=== PATIENT | female | born 1945 | race Caucasian/White ===

== ENCOUNTER 2016-11-15 15:47 | Inpatient (IN) | payer BC ==
--- NOTE | ~2016-11-15 | IDS ---
Interim Discharge Summary [place] [address] [facility] [place]. [address] NAME: ALFIE KEBEDE : 45 STATUS : ADM IN PAT#: [id number] AGE: 71 ADM/REG DATE : 11/15/16 MR#: [id number] REPORT SERV DATE: 11/25/16 DICTATED BY: JASVIR MCFARLANE DATE: 11/24/16 REPORT STATUS : Draft TRANSCRIBED BY: MODL DATE: 11/24/16 ADMISSION DATE: 11/15/2016 DISCHARGE DATE: DATE OF INTERIM SUMMARY: 11/24/2016. CURRENT DIAGNOSES: 1. Stage IV adenocarcinoma of the uterus. 2. Brain metastasis with edema and hemorrhage. 3. Likely simple partial seizure secondary to brain metastasis with left upper extremity tremor. 4. Uncontrolled hypertension, improved. 5. Uncontrolled diabetes, improved. 6. Proteus urinary tract infection, on treatment. 7. Chronic atrial fibrillation. 8. Eliquis anticoagulation, discontinued at this time. 9. Urinary retention. 10.Azotemia associated with treatment. 11.Depression. 12.Acute on chronic constipation. 13.Spinal stenosis by MRI imaging. 14.Coronary disease. 15.Sleep apnea. 16.Hyperlipidemia. 17.History of lymphedema. 18.Nonalcoholic fatty liver disease. 19.History of colon polyps. 20.Asymptomatic cholelithiasis. OPERATIONS AND PROCEDURES: None. PRESENT ILLNESS: This is a 71-year-old white female who was triaged in the emergency room on 11/15/2016 at 1547 hours complaining of generalized weakness for 3 weeks. After evaluation in the emergency room, she was referred to the Hospitalist Service for admission. She was seen by Dr. Maciel Valera and admitted as described on admission history and physical examination. Additional history included the following symptoms: Dizziness, lightheadedness, falls, progression of chronic back pain, poor bladder control with occasional incontinence, weight loss, and progressive weakness. ADDITIONAL HISTORY: Per Dr. Vlaera. PHYSICAL EXAMINATION: Per Dr. Valera. Interim Discharge Summary [address] [place]. [address] NAME: ALFIE KEBEDE : 45 STATUS : ADM IN PAT#: [id number] AGE: 71 ADM/REG DATE : 11/15/16 MR#: [id number] REPORT SERV DATE: 11/25/16 DICTATED BY: JASVIR MCFARLANE DATE: 11/24/16 REPORT STATUS : Draft TRANSCRIBED BY: LARRY DATE: 11/24/16 DICTATION ENDS HERE DD/LARRY Jasvir Mcfarlane M.D. / [id number] CC: Juanita Villalta ERIN
--- NOTE | ~2016-11-15 | CONSULT ---
Radiation Oncology Consult [address] [place]. [address] NAME: ALFIE KEBEDE : 45 STATUS : ADM IN PAT#: [id number] AGE: 71 ADM/REG DATE : 11/15/16 MR#: [id number] REPORT SERV DATE: 11/19/16 DICTATED BY: ESSIE FONSECA DATE: 11/19/16 REPORT STATUS : Draft TRANSCRIBED BY: LARRY DATE: 11/19/16 RADIATION ONCOLOGY CONSULTATION DIAGNOSIS: Stage IV endometrial cancer with brain metastases. HISTORY OF PRESENT ILLNESS: This is a very pleasant 71-year-old female with past medical history significant for endometrial adenocarcinoma with known stage IV disease. She has been maintained on Megace with relatively stable disease. The patient presented with generalized weakness and falls. The patient reports she also has significant back pain and inability to get up, prompted her to call an ambulance. CT head was performed, which was concerning for new brain metastases. I am called consulted to discuss palliative radiation. At today's visit, the patient is lying comfortably in hospital bed. She continues to note generalized weakness. She denies any focal neurologic symptoms. She denies any headaches and nausea or vomiting. She continues to have back pain. She reports she has had approximately a 10-pound weight loss. She reports a good appetite. Denies fevers, chills, or night sweats. PAST MEDICAL HISTORY: 1. Stage IV endometrial adenocarcinoma. 2. Atrial fibrillation. 3. PE. 4. CAD. 5. Obstructive sleep apnea. 6. Diabetes. 7. Hypertension. 8. Hyperlipidemia. 9. Cholelithiasis. 10.Chronic kidney disease. PAST SURGICAL HISTORY: 1. Hysterectomy with bilateral salpingo-oophorectomy. 2. Hernia repair. REVIEW OF SYSTEMS: A complete and extended review of system was performed with pertinent positives are noted in the HPI. MEDICATIONS: Reconciliation has been reviewed and discussed. Please refer to EMR. ALLERGIES: CIPRO. SOCIAL HISTORY: The patient is retired. She denies tobacco abuse. She drinks alcohol occasionally and denies illicit drug use. Radiation Oncology Consult [address] [place]. [address] NAME: ALFIE KEBEDE : 45 STATUS : ADM IN PAT#: [id number] AGE: 71 ADM/REG DATE : 11/15/16 MR#: [id number] REPORT SERV DATE: 11/19/16 DICTATED BY: ESSIE FONSECA DATE: 11/19/16 REPORT STATUS : Draft TRANSCRIBED BY: LARRY DATE: 11/19/16 FAMILY HISTORY: The patient's father had lung cancer. Her mother of a stroke. PHYSICAL EXAMINATION: ECOG performance status of 2. Pain score 8/10. VITAL SIGNS: Afebrile, respiration rate 16, O2 saturation 96% on room air. GENERAL: Well-developed obese female, in no acute distress. She is lying comfortably in hospital bed. HEENT: Normocephalic. Extraocular movements intact. Moist mucous membranes. LYMPHATICS: No supraclavicular or cervical lymphadenopathy. CARDIOVASCULAR: Normal rate and rhythm. No murmurs. RESPIRATORY: Decreased breath sounds bilaterally. No wheezing. GI: Soft, nontender, nondistended. EXTREMITIES: No edema. Normal range of motion. NEURO: Cranial nerves intact. Strength and sensation intact in all extremities. Gait not tested. The patient lying comfortably in hospital bed. PSYCH: Verbalized understanding of our discussion. Depressed affect. Verbalizes understanding of our discussion. IMAGING: CT head is positive for hemorrhagic metastasis in the right and left brain. There is no ventricular shift. ASSESSMENT AND PLAN: A 71-year-old female with stage IV endometrial adenocarcinoma with new brain metastases. I discussed her imaging findings, which is concerning for intracranial disease. We discussed palliative radiation with both whole brain radiation as well as stereotactic radiation. She will need an MRI brain with and without gadolinium to further evaluate these lesions. If she has limited number of lesions, I believe she would benefit from a course of Decadron for approximately one week to decreased swelling. I will plan stereotactic radiation next week when she has been discharged. I will follow up after the brain MRI. I appreciate the opportunity to take part in this patient's care. JTVenancio/LARRY Essie Fonseca MD / [id number] CC: Juanita Villalta,Heavenly Gutierrez MD Radiation Oncology Consult [place] [address] [address] [place] [address] NAME: ALFIE KEBEDE : 45 STATUS : ADM IN PAT#: [id number] AGE: 71 ADM/REG DATE : 11/15/16 MR#: [id number] REPORT SERV DATE: 11/19/16 DICTATED BY: ESSIE FONSECA DATE: 11/19/16 REPORT STATUS : Draft TRANSCRIBED BY: MODL DATE: 11/19/16 Veto Mccann M.D.
--- NOTE | ~2016-11-15 | CN ---
Consultation Report [facility] [address] [place]. [address] NAME: ALFIE SCHULTZ : 45 STATUS : ADM Mattie PAT#: [id number] AGE: 71 ADM/REG DATE : 11/15/16 MR#: [id number] REPORT SERV DATE: 11/16/16 DICTATED BY: ALEX GUTIERREZ DATE: 11/16/16 REPORT STATUS : Draft TRANSCRIBED BY: MODL DATE: 11/16/16 CONSULTATION NOTE DATE OF CONSULTATION: 11/16/2016 REASON FOR CONSULTATION: Metastatic endometrial cancer. HISTORY OF PRESENT ILLNESS: Ms. Schultz is a delightful 71-year-old female with a known metastatic endometrial carcinoma to the chest. She is currently receiving megestrol acetate, and her disease has been stable recently. She has had flu-like symptoms with illnesses "cold." She got progressively weak since that time. She had a fall several weeks ago. She states that she has had multiple imaging studies, which had not shown any kind of bone fractures. She has daily dizziness and lightheadedness, but basically her weakness and fatigue got progressively worse and she lives at home, so she was admitted to the hospital for the above reasons. She also has significant back pain, which got much worse recently. Prior to admission, she could not get up from a seated position and called an ambulance for further evaluation. PAST MEDICAL HISTORY: Extensive. She has current metastatic endometrial cancer diagnosed in 2014, atrial fibrillation, history of pulmonary embolism in May 2015, coronary artery disease, obstructive sleep apnea, diabetes relatively uncontrolled, and hypertension. She also has hypercholesterolemia, cholelithiasis, colon polyps, chronic kidney disease, multiple urinary tract infections, fatty liver disease, and right bundle branch block. PAST SURGICAL HISTORY: Hysterectomy with bilateral salpingo-oophorectomy with hernia repair. ALLERGIES: CIPROFLOXACIN. SOCIAL HISTORY: She denies current tobacco use. She drinks occasional wine socially. She denies illicit drug use. FAMILY HISTORY: Father had lung cancer. CURRENT MEDICATIONS: See chart. PHYSICAL EXAMINATION: VITAL SIGNS: Temperature is 98.3, pulse is 64, and blood pressure is 164/82. HEENT: Normocephalic, atraumatic. HEART: Regular rate and rhythm. LUNGS: Clear to auscultation bilaterally. ABDOMEN: Obese, soft, nontender, with no evidence of organomegaly. EXTREMITIES: She is able move all extremities with normal 5/5 strength. She does have some lower extremity edema. PELVIC: Deferred. Consultation Report [facility] [address] [place]. [address] NAME: ALFIE SCHULTZ : 45 STATUS : ADM Mattie PAT#: [id number] AGE: 71 ADM/REG DATE : 11/15/16 MR#: [id number] REPORT SERV DATE: 11/16/16 DICTATED BY: ALEX GUTIERREZ DATE: 11/16/16 REPORT STATUS : Draft TRANSCRIBED BY: MODL DATE: 11/16/16 LABORATORY EVALUATION: Her white blood cell count, hemoglobin, and platelets are all within normal limits. Her creatinine is 1.4 on admission, it is currently 1.1. Her BUN is mildly elevated at 25, and her glucose ranges from 145 to 208. She had a chest x-ray, which revealed a stable 2.5 cm lung mass consistent with known metastatic disease. Going forward, she has an MRI of the spine ordered to further evaluate her back pain, which I think is reasonable. She is at risk for of bony metastasis with this particular malignancy. Also check a CT scan of the abdomen and pelvis. She has some symptoms of constipation, but just evaluate her abdominal cavity to see if there are any issues going on in relation to her malignancy that could be explaining her current problems. Thank you very much for this consultation. We will continue to follow. MALIKA/LARRY Alex Gutierrez MD / [id number] CC: Juanita Tello ERIN
--- NOTE | ~2016-11-15 | DS ---
Discharge Summary [place] [address] [place]. [address] NAME: ALFIE KEBEDE : 45 STATUS : DIS IN PAT#: [id number] AGE: 71 ADM/REG DATE : 11/15/16 MR#: [id number] REPORT SERV DATE: 11/30/16 DICTATED BY: BENTLEY WILLS DATE: 11/29/16 REPORT STATUS : Draft TRANSCRIBED BY: MODL DATE: 11/29/16 ADMISSION DATE: 11/15/2016 DISCHARGE DATE: 11/29/2016 DISCHARGE DIAGNOSES: 1. 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 2. Metastases of the same cancer to the brain with edema and hemorrhage. 3. Partial complex seizure secondary to metastases. 4. Uncontrolled hypertension. 5. Uncontrolled type 2 diabetes mellitus. 6. Proteus urinary tract infection, currently fully treated. 7. Urinary retention. 8. Chronic atrial fibrillation. 9. Chronic anticoagulation with Eliquis to be restarted three to five days after XRT finished. 10.Azotemia related to treatment, currently resolved. 11.Depression and slow mentation, most likely due to medications and current medical issues. 12.Dyyac-ae-gzjafit constipation, currently stable. 13.Spinal stenosis by imaging. 14.Sleep apnea. 15.Hyperlipidemia. 16.Lymphedema. 17.Nonalcoholic fatty liver disease. 18.Colon polyps and cholelithiasis. OPERATIONS AND PROCEDURES IN THIS HOSPITALIZATION: None. CONSULTANTS DURING THIS HOSPITALIZATION: 1. Veto Mccann M.D., of Gynecological/Oncology. 2. Radiation Oncology, Lon Fonseca M.D. 3. Taj Choudhury M.D., of Psychiatry. 4. Raghav Garcia M.D., of Palliative Care. BRIEF HISTORY OF PRESENT ILLNESS: The patient is a 71-year-old female, brought to Triage in the emergency room on 09/30/1976, complaining of generalized weakness for three weeks. After evaluation in the emergency room, she was referred to the Hospitalist Service for admission. She was seen by Dr. Maciel Valera and admitted, please refer to his H and P for details of the initial exam. HOSPITAL COURSE: After being admitted to the hospital, this patient was followed by Dr. Marcel Mcfarlane, please refer to interim summary dictated by Dr. Marcel Mcfarlane on 11/25/2016. I took over this patient's care on November 26. This patient was doing fairly well. Her urinary tract and symptoms were resolving and she had finished a good course of antibiotics. 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 Radiation Oncology decided to do palliative radiation therapy with two doses, this were done. Post Discharge Summary [address] [place]. [address] NAME: ALFIE KEBEDE : 45 STATUS : DIS IN PAT#: [id number] AGE: 71 ADM/REG DATE : 11/15/16 MR#: [id number] REPORT SERV DATE: 11/30/16 DICTATED BY: BENTLEY WILLS DATE: 11/29/16 REPORT STATUS : Draft TRANSCRIBED BY: LARRY DATE: 11/29/16 radiation therapy, it was recommended that we can restart Eliquis three to five days. This patient continued to have issues with mentation. Dr. Choudhury saw the patient in consultation and did not recommend that she was actually depressed, this was reactive and no further intervention was to be done from a psychiatric standpoint. Dr. Garcia saw the patient from palliative care standpoint because of patient's overall condition and terminal illness of uterine cancer with metastatic disease to the lungs and brain. Dr. Castillo recommended starting Ritalin to improve her mentation and her mood that has been started at 5 mg. The risk was discussed with Dr. Castillo regarding her seizure issue and metastases. He thinks that a dose of Ritalin would be okay. He will follow up the patient in the office after the patient is discharged from rehab. This patient, otherwise, has remained stable post radiation. This patient's sodium and potassium did change. We gave her IV fluids and corrected dose without any difficulty. Today, I discussed her care with Dr. Mccann and we agreed that she is ready for rehab. This patient's overall prognosis is very poor and hospice must be considered. Dr. Mccann has had that discussion with the son, who would be able to make most decisions as patient's current mental state probably does not allow her to make some decisions regarding her care. DISCHARGE DISPOSITION: To half-way facility for rehab. DISCHARGE ACTIVITY: Per facility. DISCHARGED DIET: 1800 calorie [employer] Diet. DISCHARGE MEDICATIONS: Tramadol 50 mg every six hours p.r.n. for pain, Ritalin 5 mg once daily every morning, Lotensin 10 mg once daily, Coreg 25 mg twice daily, dexamethasone taper 4 mg as directed by Dr. Fonseca, Lanoxin 0.125 mg once every morning, fenofibrate 160 mg once at bedtime, NovoLog sliding scale NovoLog 13 units subcu before every meal, Keppra 500 mg twice daily, Megace 40 mg twice daily, Mycostatin powder to skin folds for fungal infection of the skin, MiraLAX one packet p.o. twice daily, Senokot two tablets p.o. twice daily, Levemir 40 units subcu once at bedtime, Zyrtec 10 mg once daily p.r.n. for allergies, Prilosec 20 mg once daily, albuterol two puffs daily p.r.n., Eliquis 5 mg twice daily to be restarted on 12/02/2016, Lipitor 20 mg once at bedtime, Nasacort AQ two sprays each nostril daily p.r.n. for allergies and restful legs as needed. DISCHARGE FOLLOWUP: With Dr. Mccann post rehab, with Dr. Raghav Castillo post rehab, with Heavenly Avendano post rehab. More than 40 minutes was spent planning this patient's discharge, reconciling medications, writing prescriptions, discussing hospital care, and follow up with Dr. Mccann and arranging proper discharge and documenting this discharge. STANLEY/LARRY Bentley Wills M.D. Discharge Summary [address] [address] NAME: TAYLORALFIE FRIAS : 45 STATUS : DIS IN PAT#: [id number] AGE: 71 ADM/REG DATE : 11/15/16 MR#: [id number] REPORT SERV DATE: 11/30/16 DICTATED BY: BENTLEY WILLS DATE: 11/29/16 REPORT STATUS : Draft TRANSCRIBED BY: LARRY DATE: 11/29/16 / [id number] CC: Juanita Medley M.D. [facility]
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
--- NOTE | ~2016-11-15 | IDS ---
Interim Discharge Summary [address] [place]. [address] NAME: ALFIE KEBEDE Jovanna : 45 STATUS : ADM IN PAT#: [id number] AGE: 71 ADM/REG DATE : 11/15/16 MR#: [id number] REPORT SERV DATE: 11/26/16 DICTATED BY: JASVIR FISHER DATE: 11/25/16 REPORT STATUS : Draft TRANSCRIBED BY: MODL DATE: 11/25/16 ADMISSION DATE: 11/15/2016 DISCHARGE DATE: CURRENT DIAGNOSES: 1. Stage IV adenocarcinoma of the uterus. 2. Brain metastasis with edema and hemorrhage. 3. Likely simple partial seizure secondary to brain metastasis with left upper extremity tremor. 4. Uncontrolled hypertension, improved. 5. Uncontrolled diabetes, improved. 6. Proteus urinary tract infection, symptomatic on treatment. 7. Urinary retention. 8. Chronic atrial fibrillation. 9. Eliquis anticoagulation, discontinued at this time. 10.Azotemia, related to treatment. 11.Depression, Dr. Choudhury evaluation and recommendations, 11/26/2016. 12.Acute on chronic constipation improved. 13.Spinal stenosis by imaging. 14.Sleep apnea. 15.Hyperlipidemia. 16.Lymphedema. 17.Nonalcoholic fatty liver disease. 18.History of colon polyps and cholelithiasis. OPERATIONS AND PROCEDURES: None. PRESENT ILLNESS: This is a 71-year-old white female who was triaged in the emergency room on 11/15/2016 at 1547 hours, complaining of generalized weakness for three weeks. After evaluation in the emergency room, she was referred to the Hospitalist Service for admission. She was seen by Dr. Maciel Valera, admitted as described on admission history and physical examination. Additional history included the following symptoms; dizziness, lightheadedness, falls, progression of chronic back pain, poor bladder control with occasional incontinence, weight loss, and progressive weakness. ADDITIONAL HISTORY: Per Dr. Valera. PHYSICAL EXAMINATION: Per Dr. Valera. ADMISSION LABORATORY: Per Dr. Valera. HOSPITAL COURSE: She was admitted as described. The thrust of her initial evaluation was to identify potential additional metastatic disease and to address her multiple comorbidities. Interim Discharge Summary [address] [place]. [address] NAME: ALFIE KEBEDE : 45 STATUS : ADM IN PAT#: [id number] AGE: 71 ADM/REG DATE : 11/15/16 MR#: [id number] REPORT SERV DATE: 11/26/16 DICTATED BY: JASVIR FISHER DATE: 11/25/16 REPORT STATUS : Draft TRANSCRIBED BY: LARRY DATE: 11/25/16 Consultation was obtained with [facility], Dr. Gutierrez, and she has subsequently been seen by Dr. Gutierrez and Dr. Mccann. Her hospitalist care was by Dr. aSnford on 10/15/2016, Dr. De La Paz on 10/16/2016, Dr. Sanford on 10/17/2016, and the undersigned from 10/19/2016. Her evaluation has included the following imaging. A CT abdomen and pelvis was done on 11/16/2016 that showed a new nodule in the retroperitoneal fat laterally at the lower abdominal level measuring 10 x 14 mm, suspicious for possible metastatic implant. There were new nodules/lymph nodes medial to the left groin region within the anterior pelvic wall measuring up to 11 x 15 mm suspicious for possible metastatic disease. There were additional nodules within the anterior abdominal wall and the right measuring up to 22 x 31 mm and within the left flank measuring 7 x 8 mm concerning for metastatic disease. There was consolidation/atelectasis within the basilar left lower lobe. There was a small hiatal hernia, gallstones, and colonic diverticulosis. An MRI of lumbar spine showed severe stenosis of the central spinal canal and bilateral neural foramina at L4-5 due to a combination of grade 1 spondylolisthesis of L4 and L5 with a large broad-based extruded disk fragment and facet and ligamentous degenerative hypertrophy. The degree of spondylolisthesis was similar to 2013. There is L3-L4 mild central canal stenosis due to combination of disc bulge, facet arthropathy, and epidural lipomatosis. A brain CT showed hemorrhagic metastasis in the right and left cerebral hemispheres with no ventricular shift. A brain MRI demonstrated bihemispheric hemorrhagic metastasis consistent with diagnosis of endometrial metastasis. She was seen by Dr. Lon Fonseca for Radiation Oncology. Decadron has been initiated. A repeat MRI was done after 6 days of Decadron, which shows mass and edema stability. Dr. Fonseca plans simulation and treatment Friday or Friday of this week with stereotactic radiotherapy. With her hemorrhagic metastasis, her Eliquis was discontinued. 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 She was started on Keppra for seizure prophylaxis. In addition, she had some left arm tremor that was thought to be a possible partial seizure. She has been seen by Neurology who concurs and recommends continuation of Keppra. An EEG is mildly abnormal without seizure focus. With the above-mentioned therapy, she has required intensification of her blood pressure treatment, which is now satisfactory on a multidrug regimen. Interim Discharge Summary [place] [address] [place]. [address] NAME: ALFIE KEBEDE : 45 STATUS : ADM IN [facility]#: [id number] AGE: 71 ADM/REG DATE : 11/15/16 MR#: [id number] REPORT SERV DATE: 11/26/16 DICTATED BY: JASVIR FISHER DATE: 11/25/16 REPORT STATUS : Draft TRANSCRIBED BY: MODL DATE: 11/25/16 With Decadron, she had considerable elevation in her blood sugars which are now better controlled on a basal bolus correction regimen. She has urinary retention with a symptomatic Proteus urinary tract infection which is under treatment with Chang catheterization and Rocephin with improvement. She developed acute on chronic constipation, also controlled on MiraLAX and senna regimen. During my interval with her, she has become progressively depressed. Dr. Choudhury has been consulted. An initial evaluation was done today which will be completed tomorrow. With the above, she has developed some azotemia, which is being addressed with IV fluids and discontinuation of diuretic therapy. Hospitalist care to be assumed by [address] [place] [address] hospitalist team on 11/26/2016. DD/MODL Jasvir Fisher M.D. / [id number] CC: Juanita Villalta
--- NOTE | ~2016-11-15 | CN ---
Consultation Report [facility] [address] [place]. [address] NAME: ALFIE KEBEDE : 45 STATUS : ADM IN [facility]#: [id number] AGE: 71 ADM/REG DATE : 11/15/16 MR#: [id number] REPORT SERV DATE: 11/24/16 DICTATED BY: DATE: REPORT STATUS : Draft TRANSCRIBED BY: MODL DATE: 11/24/16 NEUROLOGY CONSULTATION DATE OF CONSULTATION: 11/24/2016 REASON FOR CONSULT: Possible seizure. HISTORY OF PRESENT ILLNESS: This is a 71-year-old female with metastatic endometrial cancer, who presented to [facility] on 11/15/2016 secondary to weakness as well as frequent falls. In addition, the patient was also noted to have a week duration of left upper extremity shaking. The patient was noted to have motor difficulties when the shaking was ongoing. The patient and family member report constant shaking at that time. Shaking seems to be improved with initiation of Decadron as well as anticonvulsant, Keppra. The patient's family otherwise report the patient appeared to have slow speech that seems to have occurred fairly recently as well as confusion that is more pronounced over the last two to three days. The patient previously ambulated with a walker and was noted to have home health physical therapy, but was noted to have progressive debilitation. Prior to hospitalization, no recent fever, chills, nausea, or vomiting was otherwise noted. The patient does not have any recent changes in medication according to family members. No previous history of seizure or seizure-like activities. No previous history of seizure medication usage and no family history of seizure was otherwise noted. REVIEW OF SYSTEMS: Difficult to obtain from the patient, but otherwise negative except for those mentioned in the HPI. PAST MEDICAL HISTORY: Significant for ovarian cancer in 2006, status post surgery and radiation with a history of endometrial adenocarcinoma metastatic to the lung. The patient is recently diagnosed with metastatic endometrial cancer to the brain; history of atrial fibrillation, previously on Eliquis, recently stopped secondary to hemorrhage in one of her metastatic cancers in the brain; history of pulmonary embolism in the past with cardiac thrombus. The patient does have history of coronary artery disease, obstructive sleep apnea, diabetes, hypertension, hyperlipidemia, cholelithiasis, urinary tract infection, fatty liver disease, as well as chronic lymphedema and right bundle-branch block. The patient was noted to have allergy to ciprofloxacin. SOCIAL HISTORY: The patient does have secondhand tobacco exposure and rare alcohol usage. No illicit drug usage was noted. The patient, at home, ambulates with a rolling walker. Also, the patient has been steadily having difficulty ambulating. FAMILY HISTORY: Significant for lung cancer as well as stroke and diabetes. CURRENT HOSPITAL MEDICATIONS: Consist of Coreg, Decadron, Keppra, Lanoxin, Levemir, Lofibra, Lotensin, Megace, MiraLAX, Mycostatin, Norvasc, NovoLog, Rocephin, and Senokot. The patient Consultation Report [facility] [facility] [address] [place]. [address] NAME: ALFIE KEBEDE : 45 STATUS : ADM IN [facility]#: [id number] AGE: 71 ADM/REG DATE : 11/15/16 MR#: [id number] REPORT SERV DATE: 11/24/16 DICTATED BY: DATE: REPORT STATUS : Draft TRANSCRIBED BY: MODL DATE: 11/24/16 also was receiving p.r.n. Ultram as well as Dulcolax. PHYSICAL EXAMINATION: VITAL SIGNS: Overnight, the patient was noted to have vital signs T-max of 98.4, heart rate of 84 to 107, respirations of 16 to 22, blood pressure of 122 to 157 over 70 to 87. GENERAL: The patient is well developed, well nourished, in no acute distress. CARDIOVASCULAR: Regular rate and rhythm. No carotid bruits were otherwise auscultated. PULMONARY: Clear to auscultation bilaterally. NEUROLOGICAL: Generally, the patient is alert and oriented to person, place, year, as well as month. Psychomotor slowing was noted at the time of my evaluation. Some difficulty following complex commands at the time of my evaluation with decreased attention span. No significant dysarthria was noted. No significant aphasia was appreciated at time of my evaluation. The patient was noted to have some difficulties with post registration as well as recall. Cranial nerves 2 through 12, pupils equal, round, and reactive to light. Extraocular eye movement was noted to be intact. No clear visual neglect or visual difficulty was noted at the time of my evaluation. The patient reports symmetrical facial sensation. Midline tongue. Normal palatal movement. Symmetrical facial expression and normal hearing. The patient does demonstrate 4/5 bilateral upper extremity strength, 4- to 4 out of 5 bilateral lower extremity strength at the time of my evaluation. Reports symmetrical sensation. No clear myoclonus, asterixis, or tremor was noted in the left upper extremity. The patient is able to move left upper extremity without significant difficulties. Reports symmetrical sensation bilaterally. Mild dysmetria was noted in bilateral upper extremities. [id number] examination, deep tendon reflex was mildly depressed 1+ throughout. The patient was noted to have upgoing toe and bilateral plantar reflexes. Gait was not evaluated, as the patient at baseline ambulates with a walker. LABORATORY STUDIES: Demonstrated white blood cell count of 7.7, hemoglobin of 14.7, hematocrit of 43.6, and platelet count of 212. Chemistry panel, sodium of 134, potassium 4.5, chloride 100, bicarb of 21, BUN of 54, creatinine 1.18, glucose of 166, calcium of 9.5. At the time of my evaluation, the patient's MRI of the brain demonstrated multiple lesions in the bilateral hemispheres especially in the left occipital area as well as right frontal and parietal area with associated significant edema. Mild hemorrhage was noted in the left occipital metastasis. IMPRESSION: Left upper extremity shaking, likely secondary to simple partial seizure. The patient's symptom improved and subsequently appeared to have resolved after initiation of Decadron and Keppra. We are recommending continue Keppra at this time, continue Decadron. We will obtain EEG study. If the patient's symptom recurs, we are recommending trials of Klonopin. RECOMMENDATION: 1. Continue Decadron and Keppra for now. 2. We will recommend Klonopin trial if the patient was noted to have recurrent events. 3. We will obtain EEG study for evaluation. Consultation Report [address] [place]. [address] NAME: VALENTEALFIE PELAEZ : 45 STATUS : ADM IN PAT#: [id number] AGE: 71 ADM/REG DATE : 11/15/16 MR#: [id number] REPORT SERV DATE: 11/24/16 DICTATED BY: DATE: REPORT STATUS : Draft TRANSCRIBED BY: MODL DATE: 11/24/16 [facility]/LARRY Gino Batista MD / [id number] CC: Juanita Villalta
--- NOTE | ~2016-11-15 | EEG ---
Electroencephalogram [facility] [address] [place]. [address] NAME: ALFIE KEBEDE : 45 STATUS : ADM IN PAT#: [id number] AGE: 71 ADM/REG DATE : 11/15/16 MR#: [id number] REPORT SERV DATE: 11/25/16 DICTATED BY: DATE: REPORT STATUS : Draft TRANSCRIBED BY: MODL DATE: 11/25/16 CLINICAL INDICATION: Seizure. DISCUSSION: This EEG was performed using 10/20 electrode placement system. During the EEG study, mild asymmetry in background activity was noted with the patient noted to have mild right temporal as well as parietal slowing noticed throughout the EEG study. Photic stimulation was performed with a driving response. Hyperventilation was not performed secondary to the patient's underlying medical conditions. During the EEG study, the patient achieved drowsy as well as stage I and II sleep trace sleep spindles. No seizure activity or seizure discharge was otherwise noted. No electrographic seizure was seen during the EEG evaluation. INTERPRETATION: This EEG study obtained during awake, drowsy, as well as stage I and II sleep, may be considered mildly abnormal secondary to presence of background asymmetry with right temporoparietal slowing suggest underlying structure abnormalities. No electrographic seizure was otherwise noted. No seizure discharge was seen during the EEG evaluation. Normal EEG does not preclude the diagnosis of seizure disorder. Clinical correlation is recommended. [facility]/MODL Gino Batista MD / [id number] CC: Juanita Villalta ERIN
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
[~2016-11-15 15:47] MED LIST: ALEVE220 MG PO; CENTRUM TAB1 TAB PO; COREG25 PO; CRESTOR10 PO; ELIQUIS 5 MG TAB5 MG PO; FLONASE NAS; FORTAMET1000 MG PO; GLUCPH PO; HCTZ25B PO; HOMEOPATHIC PO; HYDROCHLOROT12.5 MG PO; LANTUS SC; LOFIB160 PO; LOFIBRA160 MG PO; LOTE10 PO; NASACORTAQ NAS; NOVOPEN; NOVOPEN SC; OXYTROL 3.3.9 MG/24 TOP; PRILOSEC OTC20 MG PO; PROVENT20 INH; RELA5 PO; ULTRAM50 PO; ZYRTEC ALLGY10 MG PO
[2016-11-15 16:07] LABS: BASOPHILS 0.3 %; BASOPHILS ABSOLUTE 0.02 10/3/uL (0.0-0.16); EOSINOPHILS 1.3 %; EOSINOPHILS ABSOLUTE 0.08 10/3/uL (0.0-0.53); HEMATOCRIT 38.2 % (36.0-48.0); HEMOGLOBIN 12.6 g/dL (12.0-16.0); IMMATURE GRANULOCYTES 0.3 %; IMMATURE GRANULOCYTES ABSOLUTE 0.02 10/3/uL (0.0-0.11); LYMPHOCYTES 13.2 %; MANUAL DIFF NO %; MEAN CORPUSCULAR HEMOGLOB 29.8 pg (26.0-34.0); MEAN CORPUSCULAR VOLUME 90.3 fL (80-100); MEAN PLATELET VOLUME 11.6 fL (9.2-13.0); MONOCYTES 10.4 %; MONOCYTES ABSOLUTE 0.63 10/3/uL (0.21-1.20); NEUTROPHILS 74.5 %; NEUTROPHILS ABSOLUTE 4.51 10/3/uL (2.02-8.40); PLATELET COUNT 242 10/3/uL (150-400); RBC DISTRIBUTION WIDTH 15.8 % (12.0-16.0); RED CELL COUNT 4.23 10/6/uL (4.0-5.6); WHITE BLOOD CELLS 6.1 10/3/uL (4.5-10.5)
[2016-11-15 16:14] LABS: INTERNATIONAL NORMAL RATI 1.5 UNITS (-); PARTIAL THROMBO TIME 28.6 SEC (22.5-37.2); PROTIME (NOT ORD) 18.2 SEC (12.0-14.5)
[2016-11-15 16:24] LABS: BUN (BLOOD UREA NITROGEN) 31 MG/DL (6-23); CALCIUM, SERUM 9.7 MG/DL (8.5-10.4); CHEST PAIN PROFILE TAT 0 Hrs 21 Mins; CHLORIDE, SERUM 104 MMOL/L (96-112); CO2 (CARBON DIOXIDE) 24 MMOL/L (24-34); CREATININE 1.43 MG/DL (0.55-1.02); GFR AFRICAN AMERICAN 43 ML/MIN (>=60); GFR NON AFRICAN AMERICAN 37 ML/MIN (>=60); GLUCOSE, SERUM 208 MG/DL (60-99); POTASSIUM, SERUM 5.3 MMOL/L (3.5-5.3); SODIUM, SERUM 139 MMOL/L (135-148); TROPONIN I <0.02 NG/ML (<0.05)
[2016-11-15 17:05] LABS: WBC (NOT ORDERED) (RFLEX) 0 (0-5)
[2016-11-15 17:20] LABS: ASCORBIC ACID (UR NOT ORDER) 20 (NEG); BILIRUBIN, URINE NEGATIVE (NEG); ER URINALYSIS TAT 0 Hrs 16 Mins; KETONE, URINE NEGATIVE (NEG); LEUKOCYTE ESTERASE(NOT OR NEG (NEG); NITRITE (URINE) NEG (NEG)
[2016-11-15] MEDS ORDERED: ELIQUIS 5 MG TAB5 MG PO (18:28)
[2016-11-15] MEDS ORDERED: COREG25 PO (18:29)
[2016-11-15] MEDS ORDERED: LAN125 PO (18:29)
[2016-11-15] MEDS ORDERED: LOFIB160 PO (18:29)
[2016-11-15] MEDS ORDERED: MEG40 PO (18:29)
[2016-11-15] MEDS ORDERED: NOVOLOG SC (18:30)
[2016-11-15] MEDS ORDERED: ULTRAM50 PO (18:30)
[2016-11-15] MEDS ORDERED: LEVEMIR SC (18:31)
[2016-11-15] MEDS ORDERED: LIPITOR20 PO (18:32)
[2016-11-15] MEDS ORDERED: LOTE10 PO (18:32)
[2016-11-15] MEDS ORDERED: HYDROCHLOROT25 MG PO (18:33)
[2016-11-15] MEDS ORDERED: PRILO PO (18:34)
[2016-11-15] MEDS ORDERED: OMNICEF300 PO (18:34)
[2016-11-15] MEDS ORDERED: NASACORTAQ NAS (18:35)
[2016-11-15] MEDS ORDERED: ZYRTEC ALLGY10 MG PO (18:35)
[2016-11-15] MEDS ORDERED: PROAIR HFA INH (18:36)
[2016-11-15] MEDS ORDERED: RESTFUL LEGS PO (18:36)
[2016-11-16 06:00] LABS: A/G RATIO 0.8 (0.7-1.9); ALBUMIN 2.9 G/DL (3.5-5.0); ALKALINE PHOSPHATASE 43 U/L (45-117); BUN (BLOOD UREA NITROGEN) 25 MG/DL (6-23); CALCIUM, SERUM 9.6 MG/DL (8.5-10.4); CHLORIDE, SERUM 108 MMOL/L (96-112); CHOL/HDL RATIO(NOT ORDER) 4.3 (0-5); CHOLESTEROL 154 MG/DL (< 200); CO2 (CARBON DIOXIDE) 23 MMOL/L (24-34); CREATININE 1.16 MG/DL (0.55-1.02); DIGOXIN 0.7 NG/ML (0.8-2.0); GFR AFRICAN AMERICAN 55 ML/MIN (>=60); GFR NON AFRICAN AMERICAN 47 ML/MIN (>=60); GLOBULIN 3.7 G/DL (2.5-4.1); GLUCOSE, SERUM 145 MG/DL (60-99); HDL CHOLESTEROL 36 MG/DL (> 49); LDL CHOLESTEROL 86 MG/DL (< 130); NON-HDL CHOLESTEROL 118 MG/DL (< 160); POTASSIUM, SERUM 4.7 MMOL/L (3.5-5.3); SGOT(AST) 24 U/L (5-40); SGPT(ALT) 20 U/L (5-65); SODIUM, SERUM 141 MMOL/L (135-148); TOTAL BILIRUBIN 1.1 MG/DL (0-1.2); TOTAL PROTEIN 6.6 G/DL (6.0-8.5); TRIGLYCERIDE 164 MG/DL (< 150); TROPONIN I <0.02 NG/ML (<0.05)
[2016-11-16 06:28] LABS: BASOPHILS 0.2 %; BASOPHILS ABSOLUTE 0.01 10/3/uL (0.0-0.16); EOSINOPHILS ABSOLUTE 0.06 10/3/uL (0.0-0.53); HEMATOCRIT 34.8 % (36.0-48.0); HEMOGLOBIN 11.5 g/dL (12.0-16.0); IMMATURE GRANULOCYTES 0.3 %; IMMATURE GRANULOCYTES ABSOLUTE 0.02 10/3/uL (0.0-0.11); LYMPHOCYTES 14.8 %; LYMPHOCYTES ABSOLUTE 0.92 10/3/uL (0.67-4.30); MEAN CORPUSCULAR HEMOGLOB 29.3 pg (26.0-34.0); MEAN CORPUSCULAR VOLUME 88.8 fL (80-100); MEAN PLATELET VOLUME 12.3 fL (9.2-13.0); MONOCYTES 11.1 %; MONOCYTES ABSOLUTE 0.69 10/3/uL (0.21-1.20); NEUTROPHILS 72.6 %; NEUTROPHILS ABSOLUTE 4.51 10/3/uL (2.02-8.40); PLATELET COUNT 246 10/3/uL (150-400); RBC DISTRIBUTION WIDTH 16.2 % (12.0-16.0); RED CELL COUNT 3.92 10/6/uL (4.0-5.6); WHITE BLOOD CELLS 6.2 10/3/uL (4.5-10.5)
[2016-11-16 06:30] LABS: MANUAL DIFF NO %
[2016-11-16 07:21] LABS: PARTIAL THROMBO TIME 27.5 SEC (22.5-37.2)
[2016-11-16 07:22] LABS: INTERNATIONAL NORMAL RATI 1.6 UNITS (-); PROTIME (NOT ORD) 19.3 SEC (12.0-14.5)
[2016-11-16 08:48] LABS: B NATRIURETIC PEPTIDE (BNP) 183.2 PG/ML (< 100.0)
[2016-11-16 11:27] LABS: GLYCOHEMOGLOBIN (HbA1c) 8.6 % (4.7-6.1)
[2016-11-17 05:15] LABS: CALCIUM, SERUM 9.6 MG/DL (8.5-10.4); CHLORIDE, SERUM 107 MMOL/L (96-112); CO2 (CARBON DIOXIDE) 22 MMOL/L (24-34); CREATININE 1.11 MG/DL (0.55-1.02); GFR AFRICAN AMERICAN 58 ML/MIN (>=60); GFR NON AFRICAN AMERICAN 50 ML/MIN (>=60); GLUCOSE, SERUM 130 MG/DL (60-99); POTASSIUM, SERUM 4.7 MMOL/L (3.5-5.3); SODIUM, SERUM 140 MMOL/L (135-148)
[2016-11-17 05:16] LABS: BUN (BLOOD UREA NITROGEN) 19 MG/DL (6-23)
[2016-11-19 05:55] LABS: BUN (BLOOD UREA NITROGEN) 16 MG/DL (6-23); CALCIUM, SERUM 10.2 MG/DL (8.5-10.4); CHLORIDE, SERUM 106 MMOL/L (96-112); CO2 (CARBON DIOXIDE) 22 MMOL/L (24-34); CREATININE 1.12 MG/DL (0.55-1.02); GFR AFRICAN AMERICAN 57 ML/MIN (>=60); GFR NON AFRICAN AMERICAN 49 ML/MIN (>=60); POTASSIUM, SERUM 5.2 MMOL/L (3.5-5.3); SODIUM, SERUM 138 MMOL/L (135-148)
[2016-11-19 06:10] LABS: GLUCOSE, SERUM 220 MG/DL (60-99)
[2016-11-20 06:18] LABS: BASOPHILS 0 %; EOSINOPHILS 0 %; HEMOGLOBIN 12.8 g/dL (12.0-16.0); IMMATURE GRANULOCYTES 0.1 %; IMMATURE GRANULOCYTES ABSOLUTE 0.01 10/3/uL (0.0-0.11); LYMPHOCYTES 7.6 %; LYMPHOCYTES ABSOLUTE 0.55 10/3/uL (0.67-4.30); MEAN CORPUS HGB CONC 32.4 g/dL (32.0-36.0); MEAN CORPUSCULAR HEMOGLOB 29.8 pg (26.0-34.0); MEAN PLATELET VOLUME 11.8 fL (9.2-13.0); MONOCYTES 2.2 %; MONOCYTES ABSOLUTE 0.16 10/3/uL (0.21-1.20); NEUTROPHILS 90.1 %; NEUTROPHILS ABSOLUTE 6.48 10/3/uL (2.02-8.40); PLATELET COUNT 207 10/3/uL (150-400); RBC DISTRIBUTION WIDTH 16.1 % (12.0-16.0); RED CELL COUNT 4.29 10/6/uL (4.0-5.6); WHITE BLOOD CELLS 7.2 10/3/uL (4.5-10.5)
[2016-11-20 06:20] LABS: HEMATOCRIT 39.5 % (36.0-48.0); MANUAL DIFF NO %; MEAN CORPUSCULAR VOLUME 92.1 fL (80-100)
[2016-11-20 06:31] LABS: CALCIUM, SERUM 10.2 MG/DL (8.5-10.4); CHLORIDE, SERUM 105 MMOL/L (96-112); CREATININE 1.09 MG/DL (0.55-1.02); GFR AFRICAN AMERICAN 59 ML/MIN (>=60); GFR NON AFRICAN AMERICAN 51 ML/MIN (>=60); GLUCOSE, SERUM 227 MG/DL (60-99); POTASSIUM, SERUM 5.3 MMOL/L (3.5-5.3); SODIUM, SERUM 135 MMOL/L (135-148)
[2016-11-20 06:32] LABS: BUN (BLOOD UREA NITROGEN) 27 MG/DL (6-23); CO2 (CARBON DIOXIDE) 16 MMOL/L (24-34)
[2016-11-20 18:15] LABS: CALCIUM, SERUM 9.7 MG/DL (8.5-10.4); CHLORIDE, SERUM 103 MMOL/L (96-112); CREATININE 1.32 MG/DL (0.55-1.02); GFR AFRICAN AMERICAN 47 ML/MIN (>=60); GFR NON AFRICAN AMERICAN 40 ML/MIN (>=60); GLUCOSE, SERUM 253 MG/DL (60-99); SODIUM, SERUM 135 MMOL/L (135-148)
[2016-11-20 18:16] LABS: BUN (BLOOD UREA NITROGEN) 37 MG/DL (6-23); CO2 (CARBON DIOXIDE) 20 MMOL/L (24-34)
[2016-11-20 20:34] LABS: ASCORBIC ACID (UR NOT ORDER) NEG (NEG); BILIRUBIN, URINE NEGATIVE (NEG); KETONE, URINE NEGATIVE (NEG); LEUKOCYTE ESTERASE(NOT OR LARGE (NEG); WBC (NOT ORDERED) (RFLEX) 11 (0-5)
[2016-11-21 13:31] LABS: BUN (BLOOD UREA NITROGEN) 40 MG/DL (6-23); CALCIUM, SERUM 9.7 MG/DL (8.5-10.4); CHLORIDE, SERUM 100 MMOL/L (96-112); CO2 (CARBON DIOXIDE) 22 MMOL/L (24-34); CREATININE 1.33 MG/DL (0.55-1.02); GFR AFRICAN AMERICAN 46 ML/MIN (>=60); GFR NON AFRICAN AMERICAN 40 ML/MIN (>=60); GLUCOSE, SERUM 285 MG/DL (60-99); POTASSIUM, SERUM 5.3 MMOL/L (3.5-5.3); SODIUM, SERUM 135 MMOL/L (135-148)
[2016-11-22 04:48] LABS: BASOPHILS 0 %; EOSINOPHILS 0 %; HEMOGLOBIN 13.3 g/dL (12.0-16.0); IMMATURE GRANULOCYTES 0.1 %; IMMATURE GRANULOCYTES ABSOLUTE 0.01 10/3/uL (0.0-0.11); LYMPHOCYTES 6.5 %; LYMPHOCYTES ABSOLUTE 0.44 10/3/uL (0.67-4.30); MEAN CORPUS HGB CONC 33.3 g/dL (32.0-36.0); MEAN CORPUSCULAR HEMOGLOB 30.1 pg (26.0-34.0); MEAN CORPUSCULAR VOLUME 90.5 fL (80-100); MEAN PLATELET VOLUME 12.3 fL (9.2-13.0); MONOCYTES 4.8 %; MONOCYTES ABSOLUTE 0.32 10/3/uL (0.21-1.20); NEUTROPHILS 88.6 %; NEUTROPHILS ABSOLUTE 5.95 10/3/uL (2.02-8.40); PLATELET COUNT 205 10/3/uL (150-400); RBC DISTRIBUTION WIDTH 15.5 % (12.0-16.0); RED CELL COUNT 4.42 10/6/uL (4.0-5.6); WHITE BLOOD CELLS 6.7 10/3/uL (4.5-10.5)
[2016-11-22 04:56] LABS: MANUAL DIFF NO %
[2016-11-22 05:00] LABS: CALCIUM, SERUM 9.8 MG/DL (8.5-10.4); CHLORIDE, SERUM 102 MMOL/L (96-112); CO2 (CARBON DIOXIDE) 20 MMOL/L (24-34); CREATININE 1.12 MG/DL (0.55-1.02); GFR AFRICAN AMERICAN 57 ML/MIN (>=60); GFR NON AFRICAN AMERICAN 49 ML/MIN (>=60); POTASSIUM, SERUM 5.1 MMOL/L (3.5-5.3); SODIUM, SERUM 134 MMOL/L (135-148)
[2016-11-22 05:02] LABS: BUN (BLOOD UREA NITROGEN) 44 MG/DL (6-23); GLUCOSE, SERUM 194 MG/DL (60-99)
[2016-11-23 04:55] LABS: BUN (BLOOD UREA NITROGEN) 45 MG/DL (6-23); CHLORIDE, SERUM 99 MMOL/L (96-112); CO2 (CARBON DIOXIDE) 22 MMOL/L (24-34); GFR AFRICAN AMERICAN 53 ML/MIN (>=60); GFR NON AFRICAN AMERICAN 45 ML/MIN (>=60); GLUCOSE, SERUM 178 MG/DL (60-99); POTASSIUM, SERUM 4.5 MMOL/L (3.5-5.3); SODIUM, SERUM 135 MMOL/L (135-148)
[2016-11-24 04:19] LABS: BASOPHILS 0 %; EOSINOPHILS 0 %; HEMATOCRIT 43.6 % (36.0-48.0); HEMOGLOBIN 14.7 g/dL (12.0-16.0); IMMATURE GRANULOCYTES 0.4 %; IMMATURE GRANULOCYTES ABSOLUTE 0.03 10/3/uL (0.0-0.11); LYMPHOCYTES 7.6 %; LYMPHOCYTES ABSOLUTE 0.58 10/3/uL (0.67-4.30); MEAN CORPUS HGB CONC 33.7 g/dL (32.0-36.0); MEAN PLATELET VOLUME 12.4 fL (9.2-13.0); MONOCYTES 8.7 %; MONOCYTES ABSOLUTE 0.67 10/3/uL (0.21-1.20); NEUTROPHILS 83.3 %; NEUTROPHILS ABSOLUTE 6.38 10/3/uL (2.02-8.40); PLATELET COUNT 212 10/3/uL (150-400); RBC DISTRIBUTION WIDTH 15.5 % (12.0-16.0); WHITE BLOOD CELLS 7.7 10/3/uL (4.5-10.5)
[2016-11-24 04:21] LABS: MANUAL DIFF NO %
[2016-11-24 04:43] LABS: BUN (BLOOD UREA NITROGEN) 54 MG/DL (6-23); CALCIUM, SERUM 9.5 MG/DL (8.5-10.4); CHLORIDE, SERUM 100 MMOL/L (96-112); CO2 (CARBON DIOXIDE) 21 MMOL/L (24-34); CREATININE 1.18 MG/DL (0.55-1.02); GFR AFRICAN AMERICAN 54 ML/MIN (>=60); GFR NON AFRICAN AMERICAN 46 ML/MIN (>=60); GLUCOSE, SERUM 166 MG/DL (60-99); POTASSIUM, SERUM 4.5 MMOL/L (3.5-5.3); SODIUM, SERUM 134 MMOL/L (135-148)
[2016-11-25 04:56] LABS: BASOPHILS 0.1 %; BASOPHILS ABSOLUTE 0.01 10/3/uL (0.0-0.16); EOSINOPHILS 0 %; HEMATOCRIT 43.2 % (36.0-48.0); HEMOGLOBIN 14.5 g/dL (12.0-16.0); IMMATURE GRANULOCYTES 0.7 %; IMMATURE GRANULOCYTES ABSOLUTE 0.05 10/3/uL (0.0-0.11); LYMPHOCYTES 7.1 %; LYMPHOCYTES ABSOLUTE 0.51 10/3/uL (0.67-4.30); MEAN CORPUS HGB CONC 33.6 g/dL (32.0-36.0); MEAN CORPUSCULAR HEMOGLOB 29.9 pg (26.0-34.0); MEAN CORPUSCULAR VOLUME 89.1 fL (80-100); MEAN PLATELET VOLUME 12.6 fL (9.2-13.0); MONOCYTES 6.9 %; NEUTROPHILS 85.2 %; NEUTROPHILS ABSOLUTE 6.15 10/3/uL (2.02-8.40); PLATELET COUNT 185 10/3/uL (150-400); RBC DISTRIBUTION WIDTH 15.4 % (12.0-16.0); RED CELL COUNT 4.85 10/6/uL (4.0-5.6); WHITE BLOOD CELLS 7.2 10/3/uL (4.5-10.5)
[2016-11-25 05:05] LABS: MANUAL DIFF NO %
[2016-11-25 05:07] LABS: CALCIUM, SERUM 8.8 MG/DL (8.5-10.4); CHLORIDE, SERUM 99 MMOL/L (96-112); CO2 (CARBON DIOXIDE) 21 MMOL/L (24-34); GFR AFRICAN AMERICAN 53 ML/MIN (>=60); GFR NON AFRICAN AMERICAN 45 ML/MIN (>=60); GLUCOSE, SERUM 149 MG/DL (60-99); POTASSIUM, SERUM 4.7 MMOL/L (3.5-5.3); SODIUM, SERUM 133 MMOL/L (135-148)
[2016-11-25 05:10] LABS: BUN (BLOOD UREA NITROGEN) 67 MG/DL (6-23)
[2016-11-25 11:00] LABS: DIGOXIN 0.9 NG/ML (0.8-2.0)
[2016-11-26 08:14] LABS: BASOPHILS 0 %; EOSINOPHILS 0 %; HEMATOCRIT 42.2 % (36.0-48.0); HEMOGLOBIN 13.9 g/dL (12.0-16.0); IMMATURE GRANULOCYTES 0.7 %; IMMATURE GRANULOCYTES ABSOLUTE 0.05 10/3/uL (0.0-0.11); LYMPHOCYTES 5.9 %; MEAN CORPUS HGB CONC 32.9 g/dL (32.0-36.0); MEAN CORPUSCULAR HEMOGLOB 28.9 pg (26.0-34.0); MEAN CORPUSCULAR VOLUME 87.7 fL (80-100); MEAN PLATELET VOLUME 12.6 fL (9.2-13.0); MONOCYTES ABSOLUTE 0.48 10/3/uL (0.21-1.20); NEUTROPHILS 86.4 %; PLATELET COUNT 176 10/3/uL (150-400); RBC DISTRIBUTION WIDTH 15.5 % (12.0-16.0); RED CELL COUNT 4.81 10/6/uL (4.0-5.6); WHITE BLOOD CELLS 6.8 10/3/uL (4.5-10.5)
[2016-11-26 08:20] LABS: MANUAL DIFF NO %
[2016-11-26 08:24] LABS: CALCIUM, SERUM 8.8 MG/DL (8.5-10.4); CHLORIDE, SERUM 99 MMOL/L (96-112); CO2 (CARBON DIOXIDE) 25 MMOL/L (24-34); GFR AFRICAN AMERICAN 53 ML/MIN (>=60); GFR NON AFRICAN AMERICAN 45 ML/MIN (>=60); POTASSIUM, SERUM 4.8 MMOL/L (3.5-5.3); SODIUM, SERUM 135 MMOL/L (135-148)
[2016-11-26 08:25] LABS: BUN (BLOOD UREA NITROGEN) 71 MG/DL (6-23); GLUCOSE, SERUM 189 MG/DL (60-99)
[2016-11-27 05:49] LABS: BASOPHILS 0.1 %; BASOPHILS ABSOLUTE 0.01 10/3/uL (0.0-0.16); EOSINOPHILS 0 %; HEMATOCRIT 42.9 % (36.0-48.0); HEMOGLOBIN 14.4 g/dL (12.0-16.0); IMMATURE GRANULOCYTES 0.9 %; IMMATURE GRANULOCYTES ABSOLUTE 0.07 10/3/uL (0.0-0.11); LYMPHOCYTES 8.1 %; LYMPHOCYTES ABSOLUTE 0.64 10/3/uL (0.67-4.30); MANUAL DIFF NO %; MEAN CORPUS HGB CONC 33.6 g/dL (32.0-36.0); MEAN CORPUSCULAR HEMOGLOB 29.9 pg (26.0-34.0); MEAN PLATELET VOLUME 12.7 fL (9.2-13.0); MONOCYTES 5.6 %; MONOCYTES ABSOLUTE 0.44 10/3/uL (0.21-1.20); NEUTROPHILS 85.3 %; NEUTROPHILS ABSOLUTE 6.74 10/3/uL (2.02-8.40); PLATELET COUNT 147 10/3/uL (150-400); RBC DISTRIBUTION WIDTH 15.2 % (12.0-16.0); RED CELL COUNT 4.82 10/6/uL (4.0-5.6); WHITE BLOOD CELLS 7.9 10/3/uL (4.5-10.5)
[2016-11-27 07:10] LABS: ALBUMIN 2.5 G/DL (3.5-5.0); BUN (BLOOD UREA NITROGEN) 68 MG/DL (6-23); CALCIUM, SERUM 8.9 MG/DL (8.5-10.4); CHLORIDE, SERUM 98 MMOL/L (96-112); CO2 (CARBON DIOXIDE) 24 MMOL/L (24-34); CREATININE 1.09 MG/DL (0.55-1.02); GFR AFRICAN AMERICAN 59 ML/MIN (>=60); GFR NON AFRICAN AMERICAN 51 ML/MIN (>=60); PHOSPHORUS, SERUM 2.8 MG/DL (2.5-4.5); POTASSIUM, SERUM 5.1 MMOL/L (3.5-5.3); SODIUM, SERUM 133 MMOL/L (135-148)
[2016-11-27 07:18] LABS: GLUCOSE, SERUM 119 MG/DL (60-99)
[2016-11-28 06:25] LABS: BASOPHILS 0.1 %; BASOPHILS ABSOLUTE 0.01 10/3/uL (0.0-0.16); EOSINOPHILS 0 %; HEMATOCRIT 39.4 % (36.0-48.0); HEMOGLOBIN 13.3 g/dL (12.0-16.0); IMMATURE GRANULOCYTES ABSOLUTE 0.08 10/3/uL (0.0-0.11); LYMPHOCYTES 6.6 %; LYMPHOCYTES ABSOLUTE 0.54 10/3/uL (0.67-4.30); MEAN CORPUS HGB CONC 33.8 g/dL (32.0-36.0); MEAN CORPUSCULAR HEMOGLOB 28.9 pg (26.0-34.0); MEAN PLATELET VOLUME 12.3 fL (9.2-13.0); MONOCYTES 7.9 %; MONOCYTES ABSOLUTE 0.64 10/3/uL (0.21-1.20); NEUTROPHILS 84.4 %; NEUTROPHILS ABSOLUTE 6.87 10/3/uL (2.02-8.40); PLATELET COUNT 144 10/3/uL (150-400); RBC DISTRIBUTION WIDTH 15.4 % (12.0-16.0); RED CELL COUNT 4.61 10/6/uL (4.0-5.6); WHITE BLOOD CELLS 8.1 10/3/uL (4.5-10.5)
[2016-11-28 06:26] LABS: ALBUMIN 2.6 G/DL (3.5-5.0); BUN (BLOOD UREA NITROGEN) 75 MG/DL (6-23); CALCIUM, SERUM 8.7 MG/DL (8.5-10.4); CHLORIDE, SERUM 99 MMOL/L (96-112); CO2 (CARBON DIOXIDE) 22 MMOL/L (24-34); CREATININE 1.14 MG/DL (0.55-1.02); GFR AFRICAN AMERICAN 56 ML/MIN (>=60); GFR NON AFRICAN AMERICAN 48 ML/MIN (>=60); GLUCOSE, SERUM 123 MG/DL (60-99); SODIUM, SERUM 130 MMOL/L (135-148)
[2016-11-28 06:27] LABS: MANUAL DIFF NO %; MEAN CORPUSCULAR VOLUME 85.5 fL (80-100); POTASSIUM, SERUM 5.6 MMOL/L (3.5-5.3)
[2016-11-29 06:13] LABS: BASOPHILS 0.1 %; BASOPHILS ABSOLUTE 0.01 10/3/uL (0.0-0.16); EOSINOPHILS 0 %; HEMATOCRIT 41.3 % (36.0-48.0); HEMOGLOBIN 13.9 g/dL (12.0-16.0); IMMATURE GRANULOCYTES 1.9 %; IMMATURE GRANULOCYTES ABSOLUTE 0.16 10/3/uL (0.0-0.11); LYMPHOCYTES 6.9 %; LYMPHOCYTES ABSOLUTE 0.57 10/3/uL (0.67-4.30); MEAN CORPUS HGB CONC 33.7 g/dL (32.0-36.0); MEAN CORPUSCULAR HEMOGLOB 29.9 pg (26.0-34.0); MEAN PLATELET VOLUME 12.7 fL (9.2-13.0); MONOCYTES 8.4 %; NEUTROPHILS 82.7 %; NEUTROPHILS ABSOLUTE 6.88 10/3/uL (2.02-8.40); PLATELET COUNT 146 10/3/uL (150-400); RBC DISTRIBUTION WIDTH 15.2 % (12.0-16.0); RED CELL COUNT 4.65 10/6/uL (4.0-5.6); WHITE BLOOD CELLS 8.3 10/3/uL (4.5-10.5)
[2016-11-29 06:14] LABS: MANUAL DIFF NO %; MEAN CORPUSCULAR VOLUME 88.8 fL (80-100)
[2016-11-29 06:19] LABS: ALBUMIN 2.6 G/DL (3.5-5.0); BUN (BLOOD UREA NITROGEN) 64 MG/DL (6-23); CALCIUM, SERUM 8.7 MG/DL (8.5-10.4); CHLORIDE, SERUM 101 MMOL/L (96-112); CO2 (CARBON DIOXIDE) 24 MMOL/L (24-34); CREATININE 1.03 MG/DL (0.55-1.02); GFR AFRICAN AMERICAN 63 ML/MIN (>=60); GFR NON AFRICAN AMERICAN 55 ML/MIN (>=60); GLUCOSE, SERUM 122 MG/DL (60-99); PHOSPHORUS, SERUM 2.5 MG/DL (2.5-4.5); POTASSIUM, SERUM 5.2 MMOL/L (3.5-5.3); SODIUM, SERUM 134 MMOL/L (135-148)
== END 2016-11-29 16:38 | DRG 40 ==
LOC: ER 15:47 → CDU1 18:45 → CDU2 19:30 → 6NO 11-18 16:21
PROVIDERS: Emergency Medicine; Internal Medicine; Physician Assistant; Radiology Radiation Oncology
PROC: DW21DZZ Stereotactic Other Photon Radiosurgery of Head and Neck (ICD-10-PCS; principal; 2016-11-27)
DX: C79.31 Secondary malignant neoplasm of brain (principal); G93.6 Cerebral edema; I61.2 Nontraumatic intracerebral hemorrhage in hemisphere, unspecified; J96.01 Acute respiratory failure with hypoxia; C78.02 Secondary malignant neoplasm of left lung; J96.02 Acute respiratory failure with hypercapnia; C78.00 Secondary malignant neoplasm of unspecified lung; N18.3 Chronic kidney disease, stage 3 (moderate); Z68.42 Body mass index [BMI] 45.0-49.9, adult; N39.0 Urinary tract infection, site not specified; G40.209 Localization-related (focal) (partial) symptomatic epilepsy and epileptic syndromes with complex partial seizures, not intractable, without status epilepticus; E87.1 Hypo-osmolality and hyponatremia; E11.65 Type 2 diabetes mellitus with hyperglycemia; B96.4 Proteus (mirabilis) (morganii) as the cause of diseases classified elsewhere; Z51.5 Encounter for palliative care; E66.9 Obesity, unspecified; K59.00 Constipation, unspecified; K57.30 Diverticulosis of large intestine without perforation or abscess without bleeding; K44.9 Diaphragmatic hernia without obstruction or gangrene; K76.0 Fatty (change of) liver, not elsewhere classified; K80.20 Calculus of gallbladder without cholecystitis without obstruction; M48.06 Spinal stenosis, lumbar region; C54.1 Malignant neoplasm of endometrium; R33.9 Retention of urine, unspecified; G47.33 Obstructive sleep apnea (adult) (pediatric); I25.10 Atherosclerotic heart disease of native coronary artery without angina pectoris; Z85.43 Personal history of malignant neoplasm of ovary; Z87.440 Personal history of urinary (tract) infections; Z77.22 Contact with and (suspected) exposure to environmental tobacco smoke (acute) (chronic); Z79.4 Long term (current) use of insulin; Z86.010 Personal history of colon polyps; Z88.1 Allergy status to other antibiotic agents
CPT/HCPCS: 70450; 70553; 71020; 72148; 74176; 77290; 77295; 77300; 77334; 77372; 80048; 80053; 80061; 80069; 80162; 81001; 82550; 82962; 83036; 83735; 83880; 84443; 84484; 85025; 85610; 85730; 87077; 87086; 87186; 93005; 95819; 97110-GO; 97110-GP; 97162-GP; 97166-GO; 97530-GP; 97535-GO; 99285; A9270-GY; A9577; C8929; G8978-CL-GP; G8979-CK-GP; J0360; J1953; Q9957

== ENCOUNTER 2016-12-16 20:56 | Inpatient (IN) | payer BC ==
--- NOTE | ~2016-12-16 | CN ---
Consultation Report [facility] [address] [place]. [address] NAME: ALFIE SCHULTZ : 45 STATUS : ADM IN [facility]#: [id number] AGE: 71 ADM/REG DATE : 12/17/16 MR#: [id number] REPORT SERV DATE: 12/17/16 DICTATED BY: SONYA ASHLEY DATE: 12/17/16 REPORT STATUS : Draft TRANSCRIBED BY: LARRY DATE: 12/17/16 CONSULTATION DATE OF CONSULTATION: HISTORY OF PRESENT ILLNESS: Ms Schultz is a 71-year-old female, who is followed in our office for her stage IV endometrial cancer. 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 During her admission, she was followed by Radiation Oncology, and started on radiation to her brain for her metastatic disease. The patient was discharged on 11/29/2016 to a rehab facility. The patient was readmitted to the hospital yesterday. Per the patient's son, the patient has had altered mental status since Friday. States she has been in a daze, also requiring help with eating, and has been speaking less. Her son also states that she was standing for a longer periods of time when she was first admitted to the rehab facility, but now is unable to stand at all. The patient is unable to give much history. She denies any pain or shortness of breath. She does state that she is unable to ambulate. PAST MEDICAL HISTORY: Quite extensive as she has metastatic endometrial cancer diagnosed in 2014, atrial fibrillation, history of a PE in May 2015, coronary artery disease, obstructive sleep apnea, diabetes, hypertension, hypercholesterolemia, cholelithiasis, colon polyps, chronic kidney disease, multiple urinary tract infections, fatty liver disease, and a right bundle branch block. PAST SURGICAL HISTORY: Hysterectomy with bilateral salpingo-oophorectomy, and hernia repair. ALLERGIES: CIPROFLOXACIN. SOCIAL HISTORY: She denies any current tobacco use. She drinks occasional wine socially. She denies any illicit drug use. FAMILY HISTORY: Father had lung cancer. PHYSICAL EXAMINATION: GENERAL: She is alert and awake. She does respond to some questions, though she responds very slowly when asked specific questions. LUNGS: Clear to auscultation bilaterally. HEART: Regular rate and rhythm. ABDOMEN: Soft. She does have a palpable nodule to her right side that is approximately 4 to 5 cm. EXTREMITIES: Pulses +2, and no edema noted. ASSESSMENT/PLAN: This is a 71-year-old female with metastatic endometrial cancer to her chest and brain and has abdominal nodules. Her chest x-ray on admission showed left lower lobe mass has increased in size, as well as on physical exam, the nodule on the right side Consultation Report [place] [id number] [id number] NAME: ALFIE SCHULTZ : 45 STATUS : ADM IN PAT#: [id number] AGE: 71 ADM/REG DATE : 12/17/16 MR#: [id number] REPORT SERV DATE: 12/17/16 DICTATED BY: SONYA ASHLEY DATE: 12/17/16 REPORT STATUS : Draft TRANSCRIBED BY: LARRY DATE: 12/17/16 of her abdomen has also increased in size since she was discharged from the hospital. Urinalysis does not show any significant findings for infection. I had a long conversation with the patient's son over the phone in regard to the patient's status and prognosis with increasing size of her metastatic disease, as well as the patient's likely intolerability for chemotherapy. I recommend hospice as an option for the for the patient, and I spoke with her son about this. We will continue to follow along with the inpatient care while she is in the hospital. JARED/LARRY Sonya Ashley NP / [id number] CC: MD LIANG Mckeon
--- NOTE | ~2016-12-16 | DS ---
Discharge Summary [place] [id number] [facility] [place]. [address] NAME: ALFIE SCHULTZ : 45 STATUS : DIS IN PAT#: [id number] AGE: 71 ADM/REG DATE : 12/17/16 MR#: [id number] REPORT SERV DATE: 12/19/16 DICTATED BY: DARCIE WALDRON DATE: 12/19/16 REPORT STATUS : Draft TRANSCRIBED BY: MODL DATE: 12/19/16 ADMISSION DATE: 12/17/2016 DISCHARGE DATE: 12/19/2016 REASON FOR ADMISSION: Encephalopathy. HISTORY OF PRESENT ILLNESS: Please refer to Dr. Prem Rea's history and physical dated 12/17/2016 for complete details regarding the patient's admission. In brief, the patient was admitted to the Hospitalist Service for management of her encephalopathy, likely secondary to vasogenic edema and metastatic disease. HOSPITAL COURSE: The patient had an uncomplicated hospital course. She was recently discharged from our service to a rehab facility. She was readmitted with encephalopathy. She had a CT scan of her brain done in the ER, which showed similar size of the largest [employer] metastatic lesion in the right frontal lobe and right frontal parietal lobe, although mildly increasing surrounding vasogenic edema compared to the prior CT scan. There is mild mass effect on the underlying sulci caused by the edema. Dr. Rea had started her on IV Decadron and consulted Gynecology/Oncology Sonya Ashley, nurse practitioner, with Dr. Mccann evaluated the patient the following day and highly recommended hospice. They spoke with the patient's son, who was agreeable and we have worked on getting the patient arrange for hospice. Her encephalopathy had slightly resolved where she was becoming a little bit more interactive, but reading the previous discharge summary, she has this known history of slow cognition. [facility] had evaluated the patient and they have made arrangements for the patient to be transferred back to [facility] for hospice. She also had an episode of AFib with RVR on admission, but this was quickly rate controlled with some IV fluids as she was hypotensive and dehydrated. The patient will be discharged today in a stable condition to [facility] with [facility]. DISCHARGE DIAGNOSES: 1. Encephalopathy, likely secondary to vasogenic edema and metastatic cancer. 2. Stage IV endometrial cancer to the lungs and to the brain. 3. History of seizure disorder, stable on Keppra. 4. Atrial fibrillation with rapid ventricular rate, rate controlled. 5. Hypotension. 6. Dehydration. 7. Type 2 diabetes. 8. Chronic atrial fibrillation, on Eliquis. 9. History of constipation. PROCEDURES: Include consultation with Gynecology/Oncology and [facility] and CT scan of brain without contrast. DISCHARGE MEDICATIONS: Per [facility]. The patient will be discharged today in stable condition. Discharge Summary [address] [address] NAME: ALFIE SCHULTZ : 45 STATUS : DIS IN PAT#: [id number] AGE: 71 ADM/REG DATE : 12/17/16 MR#: [id number] REPORT SERV DATE: 12/19/16 DICTATED BY: DARCIE WALDRON DATE: 12/19/16 REPORT STATUS : Draft TRANSCRIBED BY: LARRY DATE: 12/19/[address] Darcie Waldron doing planning and 30 minutes was spent in coordination of care of Ms. Schultz. JENNA/LARRY Darcie Waldron MD / [id number] CC: MD ERUM Mckeon ERIN
--- NOTE | ~2016-12-16 | HP ---
History And Physical [place] [address] [place]. [address] NAME: ALFIE SCHULTZ : 45 STATUS : ADM IN [facility]#: [id number] AGE: 71 ADM/REG DATE : 12/17/16 MR#: [id number] REPORT SERV DATE: 12/17/16 DICTATED BY: PREM BARILLAS DATE: 12/17/16 REPORT STATUS : Draft TRANSCRIBED BY: MODL DATE: 12/17/16 DATE OF ADMISSION: 12/17/2016 CHIEF COMPLAINT: Altered mental status. HISTORY OF PRESENT ILLNESS: This is a 71-year-old female with history of metastatic endometrial cancer to chest and brain, history of pulmonary embolism, diabetes mellitus, who comes from [facility] [place], [place], and presents to the emergency room here at [facility] for the above-mentioned complaint. History is obtained from speaking with the ER physician, and reviewing data that accompanied the patient. According to available data, the patient had been increasingly encephalopathic in the facility and the patient was transferred here for evaluation. In the emergency room, she was not very communicative and a CT scan of the brain revealed increasing vasogenic cerebral edema, mild mass effect, but without midline shift. She does have metastatic disease to the brain. EKG showed atrial fibrillation with rapid ventricular response, and she also had hypotension. Hospitalist Service is asked to admit her for further evaluation and treatment. At the time of my evaluation, she did not communicate very well at all. The only thing she could say was, say yes to when asked Alfie was her name. Any other questions when done answered. She would not follow any other commands, move any part of her body as well. No other history or review of systems was available from her. PAST MEDICAL HISTORY: Significant for history of metastatic endometrial cancer to the chest and brain followed by Dr. Alex Gutierrez, and Dr. Lon Fonseca. She has history of pulmonary embolism, diabetes mellitus type 2, hyperlipidemia, spinal stenosis, history of seizures. She also had atrial fibrillation. SOCIAL HISTORY: She does not smoke, drink, or use recreational drugs. FAMILY HISTORY: Noncontributory. MEDICATIONS: Her medications at home were reviewed by me in the chart today and reordered by me. REVIEW OF SYSTEMS: As in history of present illness. All other systems were reviewed in detail and are quite unremarkable. PHYSICAL EXAMINATION: GENERAL: This is a pleasant 71-year-old, not in any acute distress. HEENT: Her head is atraumatic and normocephalic. She appears to be alert and awake, but not oriented to time, place, and person. Her pupils are equal, reacting to light. She does not History And Physical [address] [address] NAME: ALFIE SCHULTZ : 45 STATUS : ADM IN [facility]#: [id number] AGE: 71 ADM/REG DATE : 12/17/16 MR#: [id number] REPORT SERV DATE: 12/17/16 DICTATED BY: PREM BARILLAS DATE: 12/17/16 REPORT STATUS : Draft TRANSCRIBED BY: LARRY DATE: 12/17/16 follow commands. NECK: Supple with no jugular venous distention, lymphadenopathy, or thyromegaly. LUNGS: Clear to auscultation with no wheezes, rubs, or crackles. HEART: Heart sounds were irregularly irregular. ABDOMEN: Soft and nontender. Bowel sounds are present. EXTREMITIES: No cyanosis, clubbing, or edema. NEUROLOGIC: Grossly intact, although she was encephalopathic. VITAL SIGNS: Her vital signs today showed a temperature of 98.9, pulse 108, respirations 29, blood pressure was 98/51. Oxygen saturations were 98%, breathing 2 L of oxygen via nasal cannula. LABORATORY DATA: Reviewed on the Taste Filter system showed a sodium of 136, potassium 4.4, chloride 103 and CO2 of 23, BUN was 31 with a creatinine of 1.06. Her blood glucose was 216. Her albumin was 1.8. Troponin was 0.02. CBC showed a white blood cell count of 4800, hemoglobin was 10.8, hematocrit 32.3, and platelet count was 220,000. Lactate was 1.1 today. Urinalysis showed large blood, 1485 rbc's and 24 wbc's. Films of the CT scan of the brain were reviewed by me on the PACS today and official Radiology comments were also reviewed. According to the radiologist, there is increased vasogenic cerebral edema when compared to prior films. There is mild mass effect, but without midline shift. There is metastatic disease to the brain as well. A 12-lead EKG done in the emergency room was reviewed and interpreted by me. There is atrial fibrillation with rapid ventricular response, and an incomplete right bundle-branch block. IMPRESSION: 1. Altered mental status. 2. Increased vasogenic cerebral edema. 3. Atrial fibrillation with rapid ventricular response. 4. Hypotension. 5. Diabetes mellitus with hyperglycemia. 6. Metastatic endometrial cancer. 7. Hyperlipidemia. 8. The patient is DNR. PLAN: We will admit Mrs. Schultz to the Hospitalist Service with telemetry for close monitoring along with neuro checks. The patient was given a dose of Decadron in the ER which we will continue every four hours. We will follow strict outputs and weights. Check chemistry and electrolytes in the morning, and replace as needed. We will go ahead and consult Oncology Service to see her in the morning. After cultures are drawn, we will start her on empiric IV antibiotics, we will give her Rocephin intravenously. For blood sugar History And Physical [address] [address] NAME: ALFIE SCHULTZ : 45 STATUS : ADM IN [facility]#: [id number] AGE: 71 ADM/REG DATE : 12/17/16 MR#: [id number] REPORT SERV DATE: 12/17/16 DICTATED BY: PREM BARILLAS DATE: 12/17/16 REPORT STATUS : Draft TRANSCRIBED BY: LARRY DATE: 12/17/16 control we will start her on NovoLog insulin per sliding scale. We will follow her atrial fibrillation, the rate is anywhere between 90 and 100 at the time of my exam. If it should go up we will give her a dose of Lopressor on an as needed basis. We will place her on SCDs for DVT prophylaxis as well. I have discussed the above plans with her, but I do not how much she can understand at this point, there is no next of kin at bedside. Hospitalist Service will be following her during her stay here. /LARRY Prem Barillas M.D. / [id number] CC: Juanita Sparks [employer]
[~2016-12-16 20:56] MED LIST changes: +HYDROCHLOROT25 MG PO; +LAN125 PO; +LEVEMIR SC; +LIPITOR20 PO; +MEG40 PO; +NOVOLOG SC; +OMNICEF300 PO; +PRILO PO; +PROAIR HFA INH; +RESTFUL LEGS PO
[2016-12-16 22:21] LABS: BASOPHILS 0 %; EOSINOPHILS 1.9 %; EOSINOPHILS ABSOLUTE 0.09 10/3/uL (0.0-0.53); IMMATURE GRANULOCYTES 1.1 %; IMMATURE GRANULOCYTES ABSOLUTE 0.05 10/3/uL (0.0-0.11); LYMPHOCYTES 10.7 %; LYMPHOCYTES ABSOLUTE 0.51 10/3/uL (0.67-4.30); MEAN CORPUS HGB CONC 33.4 g/dL (32.0-36.0); MEAN CORPUSCULAR HEMOGLOB 29.4 pg (26.0-34.0); MEAN PLATELET VOLUME 10.6 fL (9.2-13.0); MONOCYTES 10.1 %; MONOCYTES ABSOLUTE 0.48 10/3/uL (0.21-1.20); NEUTROPHILS 76.2 %; NEUTROPHILS ABSOLUTE 3.62 10/3/uL (2.02-8.40)
[2016-12-16 22:23] LABS: ER CBC TAT 0 Hrs 09 Mins; HEMATOCRIT 32.3 % (36.0-48.0); HEMOGLOBIN 10.8 g/dL (12.0-16.0); MANUAL DIFF NO %; PLATELET COUNT 220 10/3/uL (150-400); RED CELL COUNT 3.67 10/6/uL (4.0-5.6); WHITE BLOOD CELLS 4.8 10/3/uL (4.5-10.5)
[2016-12-16 22:44] LABS: CALCIUM, SERUM 9.3 MG/DL (8.5-10.4); CHLORIDE, SERUM 103 MMOL/L (96-112); CO2 (CARBON DIOXIDE) 23 MMOL/L (24-34); CREATININE 1.06 MG/DL (0.55-1.02); GFR AFRICAN AMERICAN 61 ML/MIN (>=60); GFR NON AFRICAN AMERICAN 53 ML/MIN (>=60); POTASSIUM, SERUM 4.4 MMOL/L (3.5-5.3); SGOT(AST) 33 U/L (5-40); SGPT(ALT) 18 U/L (5-65); SODIUM, SERUM 136 MMOL/L (135-148); TOTAL BILIRUBIN 0.7 MG/DL (0-1.2); TOTAL PROTEIN 5.5 G/DL (6.0-8.5); TROPONIN I <0.02 NG/ML (<0.05)
[2016-12-16 22:45] LABS: A/G RATIO 0.5 (0.7-1.9); ALBUMIN 1.8 G/DL (3.5-5.0); ALKALINE PHOSPHATASE 71 U/L (45-117); BUN (BLOOD UREA NITROGEN) 31 MG/DL (6-23); GLOBULIN 3.7 G/DL (2.5-4.1); GLUCOSE, SERUM 216 MG/DL (60-99)
[2016-12-16 22:55] LABS: ASCORBIC ACID (UR NOT ORDER) 40 (NEG); BILIRUBIN, URINE NEGATIVE (NEG); ER URINALYSIS TAT 0 Hrs 12 Mins; KETONE, URINE NEGATIVE (NEG); LEUKOCYTE ESTERASE(NOT OR NEG (NEG); NITRITE (URINE) NEG (NEG); WBC (NOT ORDERED) (RFLEX) 24 (0-5)
[2016-12-17 01:49] LABS: LACTATE 1.1 MMOL/L (0.3-2.4)
[2016-12-17] MEDS ORDERED: ELIQUIS 5 MG TAB5 MG PO (02:59)
[2016-12-17] MEDS ORDERED: NOVOLOG SC ×2 (03:00→03:01)
[2016-12-17] MEDS ORDERED: LEVEMIR SC (03:01)
[2016-12-17] MEDS ORDERED: COREG25 PO (03:02)
[2016-12-17] MEDS ORDERED: DEX4 (03:05)
[2016-12-17] MEDS ORDERED: KEPPRA500 PO (03:11)
[2016-12-17] MEDS ORDERED: MEG40 PO (03:11)
[2016-12-17] MEDS ORDERED: RITALIN5 PO (03:12)
[2016-12-17] MEDS ORDERED: LAN125 PO (03:12)
[2016-12-17] MEDS ORDERED: LOTE10 PO (03:13)
[2016-12-17] MEDS ORDERED: LOFIBRA160 MG PO (03:14)
[2016-12-17] MEDS ORDERED: NORV5 PO (03:14)
[2016-12-17] MEDS ORDERED: ZYRTEC ALLGY10 MG PO (03:15)
[2016-12-17] MEDS ORDERED: PRILO PO (03:15)
[2016-12-17] MEDS ORDERED: ULTRAM50 PO (03:15)
[2016-12-17 07:02] LABS: BASOPHILS 0.2 %; BASOPHILS ABSOLUTE 0.01 10/3/uL (0.0-0.16); EOSINOPHILS 0.2 %; EOSINOPHILS ABSOLUTE 0.01 10/3/uL (0.0-0.53); HEMATOCRIT 32.5 % (36.0-48.0); HEMOGLOBIN 10.9 g/dL (12.0-16.0); IMMATURE GRANULOCYTES 1.1 %; IMMATURE GRANULOCYTES ABSOLUTE 0.05 10/3/uL (0.0-0.11); LYMPHOCYTES ABSOLUTE 0.37 10/3/uL (0.67-4.30); MEAN CORPUS HGB CONC 33.5 g/dL (32.0-36.0); MEAN CORPUSCULAR HEMOGLOB 29.4 pg (26.0-34.0); MEAN CORPUSCULAR VOLUME 87.6 fL (80-100); MEAN PLATELET VOLUME 11.3 fL (9.2-13.0); MONOCYTES 3.5 %; MONOCYTES ABSOLUTE 0.16 10/3/uL (0.21-1.20); NEUTROPHILS ABSOLUTE 4.02 10/3/uL (2.02-8.40); PLATELET COUNT 253 10/3/uL (150-400); RBC DISTRIBUTION WIDTH 16.1 % (12.0-16.0); RED CELL COUNT 3.71 10/6/uL (4.0-5.6); WHITE BLOOD CELLS 4.6 10/3/uL (4.5-10.5)
[2016-12-17 07:04] LABS: MANUAL DIFF NO %
[2016-12-17 07:44] LABS: BUN (BLOOD UREA NITROGEN) 31 MG/DL (6-23); CALCIUM, SERUM 9.3 MG/DL (8.5-10.4); CHLORIDE, SERUM 110 MMOL/L (96-112); CO2 (CARBON DIOXIDE) 22 MMOL/L (24-34); CREATININE 0.93 MG/DL (0.55-1.02); GFR AFRICAN AMERICAN 72 ML/MIN (>=60); GFR NON AFRICAN AMERICAN 62 ML/MIN (>=60); GLUCOSE, SERUM 207 MG/DL (60-99); PHOSPHORUS, SERUM 3.7 MG/DL (2.5-4.5); POTASSIUM, SERUM 4.9 MMOL/L (3.5-5.3); SODIUM, SERUM 140 MMOL/L (135-148)
== END 2016-12-19 14:13 | disposition hospice, inpatient (51) | DRG 54 ==
LOC: ER 20:56 → 7NO 12-17 02:28
PROVIDERS: Emergency Medicine; Internal Medicine Pulmonary Disease
DX: C79.31 Secondary malignant neoplasm of brain (principal); G93.6 Cerebral edema; I48.2 Chronic atrial fibrillation; C78.00 Secondary malignant neoplasm of unspecified lung; C54.1 Malignant neoplasm of endometrium; E11.9 Type 2 diabetes mellitus without complications; E78.5 Hyperlipidemia, unspecified; Z66 Do not resuscitate
CPT/HCPCS: 70450; 71010; 80048; 80053; 80162; 81001; 82962; 83605; 83735; 84100; 84443; 84484; 85025; 87040; 87077; 87086; 87186; 93005; 96374; 96375; 99285; A9270-GY